=== PATIENT | female | born 1965 | race American Indian/Alaskan Native ===

== ENCOUNTER 2020-07-16 06:42 | Day surgery (SDC) | payer MEDICAID ==
--- NOTE | 2020-07-13 11:24 | History and Physical Report ---
History of Present Illness Date of examination: 07/16/20 History of present illness: 55 yo G1203 who has had random [employer] spotting. EMB was WNL. PT had an U/S though showing a 1.8 cm EM stripe with a 1.5 cm polyp. On U/S last year, polyp measured 1.4 cm. Past History Past Medical History: hypertension, other (arthritis) Past Surgical History: other (tubal ligation) Social history: no significant social history Medications and Allergies Allergies Allergy/AdvReac Type Severity Reaction Status Date / Time acetaminophen [From Percocet] Allergy Itching Verified 07/09/20 11:56 oxycodone [From Percocet] Allergy Itching Verified 07/09/20 11:56 Home Medications Medication Instructions Recorded Confirmed Last Taken Type Ibuprofen [Motrin] 800 mg PO Q8HR PRN #30 tablet 09/14/15 07/09/20 Unknown Rx Aspirin [Adult Aspirin] 81 mg PO DAILY 07/09/20 07/09/20 Unknown History Lisinopril/Hydrochlorothiazide 1 tab PO QDAY 07/09/20 07/09/20 Unknown History [Zestoretic 20-12.5 mg] Sertraline [Zoloft] 100 mg PO QDAY 07/09/20 07/09/20 Unknown History amLODIPine [Norvasc] 5 mg PO DAILY 07/09/20 07/09/20 Unknown History Review of Systems All systems: negative (except HPI) - Vital Signs Vital signs: see EMR - Physical Exam Cardiovascular: Regular rate, No murmurs Lungs: Positive: Clear to auscultation Vulva: both: normal Vagina: Positive: atrophic mucosa Uterus: Positive: normal size (sounded to 7 cm) Results Result Diagrams: 07/13/20 11:50 07/13/20 11:50 All other labs normal. Assessment and Plan - Patient Problems (1) Postmenopausal bleeding Current Visit: No Status: Acute Plan to address problem: PT will be presenting on 07/16 for D&C, hysteroscopy, possible polypectomy. Patient fully consented for the surgery. Risks, benefits, and alternatives were all discussed with the patient including risk of bleeding, infection, and potential for injury. Patient understands and accepts these risks. Patient agrees to proceed with surgery. All questions were answered. H&P is up-to-date. (2) Endometrial polyp Current Visit: No Status: Acute
[2020-07-13 14:51] LABS: Hematocrit 43.6 % (30.3-42.9); Hemoglobin 13.9 gm/dl (10.1-14.3); Mean Corpuscular HGB Conc 32 % (30-34); Mean Corpuscular Volume 74 fl (79-97); Platelet Count 314 K/mm3 (140-440); Red Blood Count 5.88 M/mm3 (3.65-5.03); Red Cell Distribution Width 14.1 % (13.2-15.2)
[2020-07-13 14:58] LABS: Blood Urea Nitrogen 16 mg/dL (7-17); Hemolysis Index 16
[2020-07-13 15:01] LABS: BUN/Creatinine Ratio 23
[2020-07-16] MEDS ORDERED: HYDROmorphone 1 MG/1 ML INJ IV PRN ×2 (07:23)
[2020-07-16] MEDS ORDERED: ONDANSETRON 4 MG/2 ML INJ IV PRN (07:23)
--- NOTE | 2020-07-16 07:24 | Anesthesia Day of Surgery ---
Anesthesia Day of Surgery - Day of Surgery Patient Examined: Yes Patient H&P Reviewed: Yes Patient is NPO: Yes
--- NOTE | 2020-07-16 07:27 | Anesthesia Consultation ---
Anesthesia Consult and Med Hx Date of service: 07/16/20 - Airway Anesthetic Teeth Evaluation: Chipped, Edentulous (Upper) ROM Head & Neck: Adequate Mental/Hyoid Distance: Adequate Mallampati Class: Class II Intubation Access Assessment: Good - Pre-Operative Health Status ASA Pre-Surgery Classification: ASA2 Proposed Anesthetic Plan: General - Pulmonary Hx Respiratory Symptoms: No (+2FS) - Cardiovascular System Hx Hypertension: Yes - Central Nervous System Hx Psychiatric Problems: Yes (Anxiety/Depression) - Gastrointestinal Hx Gastroesophageal Reflux Disease: Yes - Endocrine Hx Hypothyroidism: Yes (Not treated) - Other Systems Hx Alcohol Use: Yes (Occas) Hx Substance Use: Yes (Marijuana occas) Hx Cancer: No Hx Obesity: Yes
[2020-07-16] MEDS ORDERED: LACTATED RINGERS 1,000 ML IV SCH (08:00)
[2020-07-16] MEDS ORDERED: MIDAZOLAM 2 MG/2 ML INJ IV NR (08:00)
[2020-07-16] MEDS ORDERED: dexAMETHasone 20 MG/5 ML VIAL ONE (09:20)
[2020-07-16] MEDS ORDERED: ONDANSETRON 4 MG/2 ML INJ ONE (09:20)
[2020-07-16] MEDS ORDERED: LIDOCAINE MPF (2%) 20 MG/1 ML VIAL 5 ML ONE (09:20)
[2020-07-16] MEDS ORDERED: fentaNYL 100 MCG/2 ML INJ ONE (09:21)
[2020-07-16] MEDS ORDERED: propofoL 200 MG/20 ML VIAL IV ONE ×2 (09:21→09:46)
[2020-07-16] MEDS ORDERED: SILVER NITRATE APPLICATOR 1 EA TP ONE (09:36)
[2020-07-16] MEDS ORDERED: SODIUM CHLORIDE 0.9% IRRIG SOLN 3000 ML IR ONE (10:30)
--- NOTE | 2020-07-16 10:31 | Post Operative Note ---
Date of procedure: 07/16/20 Pre-op diagnosis: PMPB, possible EM polyp Post-op diagnosis: other (per pathology) Findings: Patient is uterus sounded to 8.5 centimeters. It was midline. Hysteroscopically, both ostia were well visualized. Most of the endometrial lining was atrophic. There was an area on the anterior wall near the fundus was either an area of slightly thickened endometrium or very wide-based but thin endometrial polyp. No stock was noted with this tissue and the tissue was not mobile. Procedure: Procedure: Dilation and curettage, hysteroscopy, resection of endometrial tissue. Indication: Patient is a 55-year-old was at random postmenopausal spotting. Patient had imaging last year and this year showing an approximately 1.5 cm endometrial polyp and a 1.8 cm endometrial thickening. Patient was taken the operating room and prepped and draped in the usual fashion. Sent to tenaculum applied at the lip of the cervix and the uterus was sounded to 8.5 cm. Cervix was dilated and the hysteroscope was placed without difficulty. Findings noted above. There was no findings on hysteroscopy that seemed to correlate with the 1.8 cm endometrial thickening noted on ultrasound. There was the above-noted area of thickening on the anterior wall near the fundus. The MyoSure device was used to attempt to resect this tissue. A small amount was obtained but not much tissue could be obtained with the device. Then a sharp curettage was performed and there was minimal tissue that was able to be obtained with that either. Patient had a good cry throughout the uterus with very little thickened tissue available to curette out. As result the procedure was concluded at this point. Patient tolerated the procedure well. All instrument and lap counts were correct. Patient taken to the recovery room in stable condition. Anesthesia: FARHEENA Surgeon: ELIZABETH MACK Estimated blood loss: minimal Pathology: list (1) endometrial tissue resection 2) EM currettings.) Specimen disposition: to lab Condition: stable Disposition: PACU
--- NOTE | 2020-07-16 10:39 | Short Stay Summary ---
Short Stay Documentation Date of service: 07/16/20 Narrative H&P: Patient on 9 had a scheduled D&C hysteroscopy and endometrial resection of tissue. Please see preop H&P and operative report for details. Surgery was uncomplicated. PT to RTO in 4 weeks - History H&P: dictated Social history: no significant social history - Allergies and Medications Current Medications: Allergies acetaminophen [From Percocet] Allergy (Verified 07/09/20 11:56) Itching oxycodone [From Percocet] Allergy (Verified 07/09/20 11:56) Itching Home Medications Medication Instructions Recorded Confirmed Last Taken Type Ibuprofen [Motrin] 800 mg PO Q8HR PRN #30 tablet 09/14/15 07/09/20 Unknown Rx Aspirin [Adult Aspirin] 81 mg PO DAILY 07/09/20 07/09/20 Unknown History Lisinopril/Hydrochlorothiazide 1 tab PO QDAY 07/09/20 07/09/20 Unknown History [Zestoretic 20-12.5 mg] Sertraline [Zoloft] 100 mg PO QDAY 07/09/20 07/09/20 Unknown History amLODIPine [Norvasc] 5 mg PO DAILY 07/09/20 07/09/20 Unknown History Active Medications Hydromorphone HCl (Dilaudid) 0.25 mg IV Q10MIN PRN PRN Reason: Pain, Moderate (4-6) Stop: 07/16/20 23:00 Hydromorphone HCl (Dilaudid) 0.5 mg IV Q10MIN PRN PRN Reason: Pain , Severe (7-10) Stop: 07/16/20 23:00 Lactated Ringer's (Lactated Ringers) 1,000 mls @ 125 mls/hr IV DIRECT BURAK Midazolam HCl (Versed) 2 mg IV PREOP NR Stop: 07/16/20 23:59 Ondansetron HCl (Zofran) 4 mg IV ONCE PRN PRN Reason: Nausea And Vomiting Stop: 07/16/20 15:00 - Disposition Condition at discharge: Stable Disposition: DC-01 TO HOME OR SELFCARE - Discharge Diagnoses (1) Postmenopausal bleeding Status: Acute (2) Endometrial polyp Status: Acute Short Stay Discharge Plan Follow up with: ELIZABETH MACK MD [Staff Physician] - 08/16/20
[2020-07-16] MEDS ORDERED: KETOROLAC 30 MG/1 ML INJ IV PRN (10:51)
[2020-07-16 11:44] VITALS: BP 145/89
== END 2020-07-16 11:35 | disposition home or self-care (01) ==
LOC: OR 06:42
PROVIDERS: ATTEND Obstetrics & Gynecology
DX: N95.0 Postmenopausal bleeding (principal); N85.8 Other specified noninflammatory disorders of uterus; I10 Essential (primary) hypertension; K21.9 Gastro-esophageal reflux disease without esophagitis; E66.9 Obesity, unspecified; M19.90 Unspecified osteoarthritis, unspecified site; E03.9 Hypothyroidism, unspecified; F32.9 Major depressive disorder, single episode, unspecified; F41.9 Anxiety disorder, unspecified; Z79.899 Other long term (current) drug therapy; Z88.8 Allergy status to other drugs, medicaments and biological substances; Z79.82 Long term (current) use of aspirin; Z98.51 Tubal ligation status; Z72.89 Other problems related to lifestyle; Z98.890 Other specified postprocedural states; Z68.37 Body mass index [BMI] 37.0-37.9, adult
CPT/HCPCS: 36415; 58558; 80048; 84703; 85027; 88305; A4217; J1100; J1170; J1885; J2250; J2405; J2704; J3010; J7120

== ENCOUNTER 2020-07-23 19:45 | Emergency (ER) | payer MEDICAID ==
[2020-07-23 19:54] VITALS: BP 128/68
[2020-07-23] MEDS ORDERED: IBUPROFEN 800 MG TAB PO ONE (20:28)
--- NOTE | 2020-07-23 21:31 | Emergency Department Report ---
ED Extremity Problem HPI - General Chief complaint: Extremity Injury, Lower Stated complaint: RIGHT LEG SWELLING Source: patient Mode of arrival: Ambulatory Limitations: No Limitations - History of Present Illness Initial comments: Patient is a 55-year-old -Togol[place] female with a history of hypertension and rheumatoid arthritis who presents to the ED with complaint of acute onset persistent nontraumatic lateral right thigh pain for the last 2 days. Patient is status post D&C procedure for uterine polyps 1 week ago. Patient states that the pain has been persistent and worse at rest but improves with physical activity or movement. Patient denies fall, traumatic injury, dizziness, syncope, fever, chills, chest pain or shortness of breath, heavy lifting, low back pain, numbness and tingling or weakness and swelling of lower extremities bilaterally. MD Complaint: extremity pain (right lateral thigh hoang) -: Sudden, days(s) (2) Location: lower extremity (right lateral thigh pain) History of Same: No -: Yes arthralgia (right lateralthigh pain), No fever, No associated dyspnea, No associated chest pain Radiation: distal Severity scale (0 -10): 6 Quality: aching, sharp Consistency: intermittent Improves with: nothing Worsens with: palpation, rest Associated Symptoms: denies other symptoms, myalgias, arthralgias. denies: chest pain, shortness of breath - Related Data Home Medications Medication Instructions Recorded Confirmed Last Taken Aspirin [Adult Aspirin] 81 mg PO DAILY 07/09/20 07/16/20 07/02/20 08:00 Lisinopril/Hydrochlorothiazide 1 tab PO QDAY 07/09/20 07/16/20 07/15/20 06:00 [Zestoretic 20-12.5 mg] Sertraline [Zoloft] 100 mg PO QDAY 07/09/20 07/16/20 07/15/20 06:00 amLODIPine [Norvasc] 5 mg PO DAILY 07/09/20 07/16/20 07/16/20 03:00 Previous Rx's Medication Instructions Recorded Last Taken Type Ibuprofen [Motrin] 800 mg PO Q8HR PRN #30 tablet 09/14/15 Unknown Rx Baclofen 20 mg PO Q12H PRN #30 tablet 07/23/20 Unknown Rx Naproxen 500 mg PO Q12H PRN #30 tablet 07/23/20 Unknown Rx Allergies Allergy/AdvReac Type Severity Reaction Status Date / Time acetaminophen [From Percocet] Allergy Itching Verified 07/09/20 11:56 oxycodone [From Percocet] Allergy Itching Verified 07/09/20 11:56 ED Review of Systems ROS: Stated complaint: RIGHT LEG SWELLING Other details as noted in HPI Constitutional: denies: chills, fever Eyes: denies: eye pain, eye discharge, vision change ENT: denies: ear pain, throat pain Respiratory: denies: cough, shortness of breath, wheezing Cardiovascular: denies: chest pain, palpitations Endocrine: no symptoms reported Gastrointestinal: denies: abdominal pain, nausea, vomiting, diarrhea Genitourinary: denies: urgency, dysuria, discharge Musculoskeletal: arthralgia (Lateral right thigh pain), myalgia. denies: back pain, joint swelling Skin: denies: rash, lesions, change in color, change in hair/nails Neurological: denies: headache, weakness, paresthesias Psychiatric: denies: anxiety, depression Hematological/Lymphatic: denies: easy bleeding, easy bruising ED Past Medical Hx - Past Medical History Previous Medical History?: Yes Hx Hypertension: Yes Hx Arthritis: Yes (Rheumatoid) Additional medical history: Uterine Polyp - Surgical History Past Surgical History?: Yes Additional Surgical History: D&C - Social History Smoking Status: Current Some Day Smoker Substance Use Type: None - Medications Home Medications: Home Medications Medication Instructions Recorded Confirmed Last Taken Type Ibuprofen [Motrin] 800 mg PO Q8HR PRN #30 tablet 09/14/15 07/09/20 Unknown Rx Aspirin [Adult Aspirin] 81 mg PO DAILY 07/09/20 07/16/20 07/02/20 08:00 History Lisinopril/Hydrochlorothiazide 1 tab PO QDAY 07/09/20 07/16/20 07/15/20 06:00 History [Zestoretic 20-12.5 mg] Sertraline [Zoloft] 100 mg PO QDAY 07/09/20 07/16/20 07/15/20 06:00 History amLODIPine [Norvasc] 5 mg PO DAILY 07/09/20 07/16/20 07/16/20 03:00 History Baclofen 20 mg PO Q12H PRN #30 tablet 07/23/20 Unknown Rx Naproxen 500 mg PO Q12H PRN #30 tablet 07/23/20 Unknown Rx ED Physical Exam - General Limitations: No Limitations General appearance: alert, in no apparent distress - Head Head exam: Present: atraumatic, normocephalic, normal inspection - Eye Eye exam: Present: normal appearance, PERRL, EOMI Pupils: Present: normal accommodation - ENT ENT exam: Present: normal exam, normal orophraynx, mucous membranes moist, TM's normal bilaterally, normal external ear exam - Neck Neck exam: Present: normal inspection, full ROM - Respiratory Respiratory exam: Present: normal lung sounds bilaterally. Absent: respiratory distress, wheezes, rhonchi, stridor, chest wall tenderness, accessory muscle use, prolonged expiratory - Cardiovascular Cardiovascular Exam: Present: normal rhythm, tachycardia, normal heart sounds. Absent: systolic murmur, diastolic murmur, rubs, gallop - GI/Abdominal GI/Abdominal exam: Present: soft, normal bowel sounds. Absent: distended, tenderness, guarding, hyperactive bowel sounds, hypoactive bowel sounds - Extremities Exam Extremities exam: Present: normal inspection, full ROM, tenderness (Palpable right lateral thigh musculoskeletal tenderness), normal capillary refill - Back Exam Back exam: Present: normal inspection, full ROM. Absent: tenderness, CVA tenderness (R), CVA tenderness (L), muscle spasm, paraspinal tenderness, vertebral tenderness - Neurological Exam Neurological exam: Present: alert, oriented X3, CN II-XII intact, normal gait, reflexes normal - Psychiatric Psychiatric exam: Present: normal affect, normal mood - Skin Skin exam: Present: warm, dry, intact, normal color. Absent: rash ED Course Vital Signs 07/23/20 19:50 Temperature 98.6 F Pulse Rate 101 H Respiratory 18 Rate Blood Pressure 128/68 O2 Sat by Pulse 96 Oximetry ED Medical Decision Making - Radiology Data Radiology results: report reviewed, image reviewed Findings [facility] [address] [place] [address] Vascular Lab Report Signed Patient: NICHOLAS LANZA MR#: [id number] : 1965 Acct:[id number] Age/Sex: 55 / F ADM Date: 07/23/20 Loc: ED Attending Dr: Ordering Physician: ORVILLE FRASER Date of Service: 07/23/20 Procedure(s): VL venous duplex LE BILAT Accession Number(s): [id number] cc: ORVILLE FRASER DUPLEX DOPPLER LOWER EXTREMITY VEINS, BILATERAL INDICATION / CLINICAL INFORMATION: Bilateral Leg Pain. S/P D C procedure. TECHNIQUE: Duplex doppler imaging was performed through the veins of both lower extremities using venous compression and other maneuvers. COMPARISON: None available. FINDINGS: RIGHT COMMON FEMORAL VEIN: Negative. RIGHT FEMORAL VEIN: Negative. RIGHT POPLITEAL VEIN: Negative. RIGHT CALF VEINS: Negative. LEFT COMMON FEMORAL VEIN: Negative. LEFT FEMORAL VEIN: Negative. LEFT POPLITEAL VEIN: Negative. LEFT CALF VEINS: Negative. ADDITIONAL FINDINGS: There is no evidence of a popliteal cyst or other significant abnormality. IMPRESSION: No sonographic evidence for DVT in either lower extremity. Signer Name: Edgar Garay MD Signed: 07/23/2020 9:46 PM Workstation Name: [id number] Transcribed By: RT Dictated By: Edgar Garay MD Electronically Authenticated By: Edgar Garay MD Signed Date/Time: 07/23/202145 DD/ 43 TD/TT: - Medical Decision Making This is a 55-year-old -[place]og[place] female with a history of hypertension and rheumatoid arthritis who presents to the ED with complaint of acute onset persistent nontraumatic lateral right thigh pain for the last 2 days. Patient is status post D&C procedure for uterine polyps 1 week ago. Patient states that the pain has been persistent and worse at rest but improves with physical activity or movement. In the ED, patient is alert and oriented x3 and is not in distress. Patient was treated for pain in the ED and bilateral lower extremity Doppler ultrasound shows no evidence of a popliteal cyst or other significant abnormality. There is also no sonographic evidence for DVT in either lower extremity. On reevaluation, patient's pain is well controlled medications. Patient will discharge home on pain medications and muscle relaxants and was advised to follow-up with her primary care physician in 7 to 10 days for reevaluation or return to the ED immediately if symptoms get worse. - Differential Diagnosis Muscle strain; Muscle spasm; DVT; Tendonitis Critical care attestation.: If time is entered above; I have spent that time in minutes in the direct care of this critically ill patient, excluding procedure time. ED Disposition Clinical Impression: Muscle spasm of right lower extremity Muscle strain of right thigh Qualifiers: Encounter type: initial encounter Qualified Code(s): S76.911A - Strain of unsp ecified muscles, fascia and tendons at thigh level, right thigh, initial encounter Disposition: TO HOME OR SELFCARE Is pt being admited?: No Does the pt Need Aspirin: No Condition: Stable Instructions: Muscle Strain (ED), Musculoskeletal Pain (ED), Leg Sprain (ED) Additional Instructions: The Doppler ultrasound of bilateral lower extremities showed no evidence of DVT. Your symptoms are likely due to muscle spasm or muscle strain of the right leg and right thigh. Therefore take medications with food, drink plenty of fluids and follow-up with your primary care physician in 7 to 10 days for reevaluation. Return to the ED immediately if symptoms get worse. Prescriptions: Baclofen 20 mg PO Q12H PRN #30 tablet PRN Reason: Muscle Spasm Naproxen 500 mg PO Q12H PRN #30 tablet PRN Reason: Pain , Severe (7-10) Referrals: ERAN CORBETT MD [Staff Physician] - 3-5 Days Forms: Work/School Release Form(ED) Time of Disposition: 21:40 Print Language: TAJIK
--- NOTE | 2020-07-23 21:50 | Vascular Lab Report ---
DUPLEX DOPPLER LOWER EXTREMITY VEINS, BILATERAL INDICATION / CLINICAL INFORMATION: Bilateral Leg Pain. S/P D C procedure. TECHNIQUE: Duplex doppler imaging was performed through the veins of both lower extremities using venous taryn nadira and other maneuvers. COMPARISON: None available. FINDINGS: RIGHT COMMON FEMORAL VEIN: Negative. RIGHT FEMORAL VEIN: Negative. RIGHT POPLITEAL VEIN: Negative. RIGHT CALF VEINS: Negative. LEFT COMMON FEMORAL VEIN: Negative. LEFT FEMORAL VEIN: Negative. LEFT POPLITEAL VEIN: Negative. LEFT CALF VEINS: Negative. ADDITIONAL FINDINGS: There is no evidence of a popliteal cyst or other significant abnormality. IMPRESSION: No sonographic evidence for DVT in either lower extremity. Signer Name: Edgar Garay MD Signed: 07/23/2020 9:46 PM Workstation Name: [id number]
== END 2020-07-23 22:25 | disposition home or self-care (01) ==
LOC: ED 19:45
DX: S76.911A Strain of unspecified muscles, fascia and tendons at thigh level, right thigh, initial encounter (principal); M62.838 Other muscle spasm; I10 Essential (primary) hypertension; M19.91 Primary osteoarthritis, unspecified site; F17.200 Nicotine dependence, unspecified, uncomplicated; Z98.890 Other specified postprocedural states; Z79.1 Long term (current) use of non-steroidal anti-inflammatories (NSAID); Z79.899 Other long term (current) drug therapy; Z88.8 Allergy status to other drugs, medicaments and biological substances; X58.XXXA Exposure to other specified factors, initial encounter; Y93.89 Activity, other specified; Y92.89 Other specified places as the place of occurrence of the external cause; Y99.8 Other external cause status
CPT/HCPCS: 93970